=== PATIENT | male | born 1990 | race Caucasian/White ===

== ENCOUNTER 2016-07-13 18:42 | Emergency (ER) | payer MEDICAID ==
--- NOTE | 2016-07-13 19:18 | ER Document Report ---
ED Medical Screen (RME) - General Stated Complaint: RIB PAIN Time seen by provider: 19:14 Mode of Arrival: Ambulatory Information source: Patient - HPI Patient complains to provider of: LEFT RIB PAIN Onset: Other - 2 DAYS Onset/Duration: Sudden Context: WRESTLING AND OTHER PERSON LANDED ON HIS RIBS. PAINFUL WITH DEEP BREATH AND TWISTING MOTION. Quality of pain: Sharp, Stabbing Severity: Moderate Pain Level: 3 Associated Symptoms: Hurts to breath. denies: Cough (productive), Cough ( nonproductive), Fever, Shortness of breath Exacerbated by: Movement, Deep breathing Relieved by: Remaining still Similar symptoms previously: No Recently seen / treated by doctor: No - Related Data Smoking: Cigarettes Frequency of alcohol use: None Drug Abuse: None Allergies/Adverse Reactions: No Known Allergies Allergy (Unverified 03/14/13 15:02) Past Medical History - Immunizations Hx Diphtheria, Pertussis, Tetanus Vaccination: Yes Physical Exam - Vital signs Vitals: Temp Pulse Resp BP Pulse Ox 98.0 F 77 16 122/78 100 07/13/16 18:46 07/13/16 18:46 07/13/16 18:46 07/13/16 18:46 07/13/16 18:46 Course - Vital Signs Vital signs: Temp Pulse Resp BP Pulse Ox 98.0 F 77 16 122/78 100 07/13/16 18:46 07/13/16 18:46 07/13/16 18:46 07/13/16 18:46 07/13/16 18:46
--- NOTE | 2016-07-13 20:47 | ER Document Report ---
HPI - HPI Patient complains to provider of: left rib pain Pain Level: 3 Context: Patient is a 25-year-old male that comes emergency department for chief complaint of pain to his left front ribs, patient states he was wrestling 2 days ago, he states that after wrestling the next day he started becoming sore, he states that today he seems increasingly sore and noticed it when raking leaves earlier today. Comfort to the area he denies any symptoms including shortness of breath, abdominal pain, dizziness. Patient denies any daily medications or any medical problems. - DERM Skin Color: Normal Past Medical History - General Information source: Patient - Social History Smoking Status: Current Every Day Smoker Frequency of alcohol use: None Drug Abuse: None Lives with: Family Family History: Reviewed & Not Pertinent Patient has suicidal ideation: No Patient has homicidal ideation: No - Medical History Medical History: Negative Renal/ Medical History: Denies: Hx Peritoneal Dialysis Surgical Hx: Negative - Immunizations Hx Diphtheria, Pertussis, Tetanus Vaccination: Yes Vertical Provider Document - CONSTITUTIONAL General Appearance: WD/WN, No Apparent Distress - HEENT HEENT: Atraumatic, Normal ENT Exam, Normocephalic - NECK Neck: Normal Inspection - RESPIRATORY Respiratory: Breath Sounds Normal, No Respiratory Distress, Other - Mild generalized tenderness over the left anterior chest wall over the lower aspect, no specific tenderness, no ecchymosis or other abnormality noted O2 Sat by Pulse Oximetry: 100 - CARDIOVASCULAR Cardiovascular: Regular Rate, Regular Rhythm - GI/ABDOMEN Gastrointestinal: Abdomen Soft, Abdomen Non-Tender - MUSCULOSKELETAL/EXTREMETIES Musculoskeletal/Extremeties: MAEW, FROM, Non-Tender - NEURO Level of Consciousness: Awake, Alert, Appropriate - DERM Integumentary: Warm, Dry, No Rash Course - Re-evaluation Re-evalutation: I do not appreciate any particular area of soreness, there are no signs of trauma, patient with full lung sounds, no evidence of shortness of breath, no hypoxia, x-ray with no acute findings. - Vital Signs Vital signs: Temp Pulse Resp BP Pulse Ox 98.0 F 77 16 122/78 100 07/13/16 18:46 07/13/16 18:46 07/13/16 18:46 07/13/16 18:46 07/13/16 18:46 Discharge - Discharge Clinical Impression: Rib pain on left side Condition: Stable Disposition: HOME, SELF-CARE Additional Instructions: Imaging shows no abnormalities. Examination and symptoms are consistent with chest wall injury but no fracture, lung collapse, or other concerning abnormality is noted. Take naproxen anti-inflammatory as prescribed, rest the area if possible. Follow-up with primary care. Return to the emergency department for any concerning worsening symptoms including shortness of breath. Prescriptions: Naproxen 500 mg PO BID #20 tablet
[2016-07-13 21:02] VITALS: BP 116/68
== END 2016-07-13 21:02 | disposition home or self-care (01) ==
LOC: ER 18:42
DX: R07.81 Pleurodynia (principal); F17.200 Nicotine dependence, unspecified, uncomplicated
CPT/HCPCS: 99283

== ENCOUNTER 2019-10-28 16:17 | Emergency (ER) | payer MEDICAID ==
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
[2019-10-28 17:19] LABS: ABSOLUTE EOSINOPHILS # (AUTO) 0.1 10^3/uL (0.0-0.6); ABSOLUTE LYMPHOCYTES (AUTO) 1.7 10^3/uL (0.5-4.7); ABSOLUTE MONOCYTES (AUTO) 0.8 10^3/uL (0.1-1.4); ABSOLUTE NEUT (AUTO) 4.5 10^3/uL (1.7-8.2); BASOPHILS % (AUTO) 0.4 % (0-2); EOSINOPHILS % (AUTO) 1.1 % (0-6); HEMATOCRIT 42.5 % (37.9-51.0); HEMOGLOBIN 14.8 g/dL (13.5-17.0); LYMPHOCYTES % (AUTO) 24.6 % (13-45); MEAN CORPUSCULAR HEMOGLOBIN 30.4 pg (27.0-33.4); MEAN CORPUSCULAR HGB CONC 34.9 g/dL (32.0-36.0); MEAN CORPUSCULAR VOLUME 87 fl (80-97); MONOCYTES % (AUTO) 11.2 % (3-13); PLATELET COUNT 193 10^3/uL (150-450); RED BLOOD COUNT 4.89 10^6/uL (4.35-5.55); RED CELL DISTRIBUTION WIDTH 13.2 % (11.5-14.0); SEGMENTED NEUTROPHILS % (AUTO) 62.7 % (42-78); TOTAL CELLS COUNTED % (AUTO) 100 %; WHITE BLOOD COUNT 7.1 10^3/uL (4.0-10.5)
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
[2019-10-28 17:33] LABS: AMORPHOUS SEDIMENT,URINE TRACE /HPF; APPEARANCE,URINE CLOUDY; BILIRUBIN,URINE NEGATIVE (NEGATIVE); COLOR,URINE YELLOW; GLUCOSE, URINE NEGATIVE (NEGATIVE); KETONES,URINE NEGATIVE (NEGATIVE); LEUKOCYTE ESTERASE,URINE NEGATIVE (NEGATIVE); NITRITE,URINE NEGATIVE (NEGATIVE); PROTEIN,URINE NEGATIVE (NEGATIVE); URINE SPECIFIC GRAVITY 1.018
[2019-10-28 17:39] LABS: ALBUMIN 5.1 g/dL (3.5-5.0); ALKALINE PHOSPHATASE 55 U/L (38-126); ANION GAP 8 (5-19); ASPARTATE AMINO TRANSFERASE 34 U/L (17-59); BILIRUBIN,TOTAL 1.1 mg/dL (0.2-1.3); BLOOD UREA NITROGEN 9 mg/dL (7-20); CALCIUM 10.1 mg/dL (8.4-10.2); CARBON DIOXIDE 30 mmol/L (22-30); CHLORIDE 102 mmol/L (98-107); GLUCOSE 100 mg/dL (75-110); POTASSIUM 4.3 mmol/L (3.6-5.0); TOTAL PROTEIN 8.2 g/dL (6.3-8.2)
[2019-10-28 17:41] LABS: ACETAMINOPHEN < 10 ug/mL (10-30); ALCOHOL < 10 mg/dL (NONE DETECTED); SALICYLATE < 1.0 mg/dL (2.0-20.0)
[2019-10-28 17:52] LABS: URINE AMPHETAMINES SCREEN NEGATIVE; URINE BARBITURATES SCREEN NEGATIVE; URINE BENZODIAZEPINES SCREEN NEGATIVE; URINE COCAINE SCREEN NEGATIVE; URINE METHADONE SCREEN NEGATIVE; URINE PHENCYCLIDINE SCREEN NEGATIVE
[2019-10-28 17:53] LABS: URINE MARIJUANA (THC) SCREEN UNCONFIRMED POSITIVE
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
[2019-10-28] MEDS ORDERED: HALOPERIDOL LACTATE INJ 5 MG/1 ML VIAL IM ONE (18:59)
[2019-10-28] MEDS ORDERED: BENZTROPINE MESYLATE INJ 2 MG/2 ML AMPULE IM ONE (19:00)
[2019-10-28 20:02] VITALS: BP 119/78
--- NOTE | 2019-10-28 22:14 | EKG REPORT ---
SEVERITY:- NORMAL ECG - SINUS RHYTHM ST ELEV, PROBABLE NORMAL EARLY REPOL PATTERN : Confirmed by: Bismark Tovar 28-Oct-2019 22:13:07
== END 2019-10-28 20:23 | disposition home or self-care (01) ==
LOC: ER 16:17
DX: F22 Delusional disorders (principal); F41.9 Anxiety disorder, unspecified; Z79.899 Other long term (current) drug therapy; F17.200 Nicotine dependence, unspecified, uncomplicated
CPT/HCPCS: 93005; 99284; 96372; 36415; 80307 ×4; 85025; 80053; 81001; 93010; J0515; J1630